=== PATIENT | female | born 1985 | race Caucasian/White ===

== ENCOUNTER → 2016-04-28 | Outpatient (CLI) | payer BC ==
[~2016-04-28] MED LIST: PRENTAB26 PO
[2016-04-29 06:26] LABS: ESTIMATED AVERAGE GLUCOSE 108 mg/dl; HA1C FLAG Normal (Normal)
[2016-05-03 09:14] LABS: CHLAMYDIA TRACH RNA*** NOT DETECTED (NOT DETECTED); GC (NEIS GONORRHOEAE)RNA** NOT DETECTED (NOT DETECTED)
== END | disposition home or self-care (01) ==
LOC: C.LAB1850 16:43
PROVIDERS: ATTEND Obstetrics & Gynecology
DX: Z01.419 Encounter for gynecological examination (general) (routine) without abnormal findings (principal); R63.5 Abnormal weight gain; R53.83 Other fatigue

== ENCOUNTER → 2016-04-28 | Outpatient (CLI) | payer BC | END | disposition home or self-care (01) | LOC: C.PAPS 09:34 | PROVIDERS: ATTEND Obstetrics & Gynecology | DX: Z01.419 Encounter for gynecological examination (general) (routine) without abnormal findings (principal) ==

== ENCOUNTER → 2017-05-08 | Outpatient (CLI) | payer OTHER | END | disposition home or self-care (01) | LOC: C.PAPS 11:42 | PROVIDERS: ATTEND Obstetrics & Gynecology | DX: Z01.411 Encounter for gynecological examination (general) (routine) with abnormal findings (principal); R87.619 Unspecified abnormal cytological findings in specimens from cervix uteri ==

== ENCOUNTER 2023-01-10 07:45 | Inpatient (IN) ==
[2023-01-10] MEDS ORDERED: OXYTOCIN 30 UNITS/500 ML BAG IV PRN ×3 (08:09→15:24)
[2023-01-10] MEDS ORDERED: LIDOCAINE 1% LOCAL 20 ML VIAL INFIL PRN (08:09)
--- NOTE | 2023-01-10 08:43 | History & Physical Report ---
Date of Service January 10, 2023 Assessment & Plan (1) Post term over 40 weeks: (2) Encounter for induction of labor: Plan admit, iv, labs. start pitocin. fhts categ 1. arom completed. pain mgmt per pt desires. Admission and Anticipated Discharge Date Admission Date: January 10, 2023 History of Present Illness Chief Complaint: induction Primary Care Provider: Federico Mari, 37yo at 40+wks egruth presents to L&D for planned induction of labor for postdates. Denies concerns. No rom, no vb. +FM. No ctx PNC c/b 1. UC 2. obesity 3. ama 4. prior ptd PNL rh pos, ri, gbs neg OBH: x 1, 35wks pprom, sab x 1 GYNH: nl paps no stds Allergies Allergy/AdvReac Type Severity Reaction Status Date / Time No Known Drug Allergies Allergy Verified 01/09/23 14:11 Home Medications Medication Instructions Recorded Confirmed Type albuterol sulfate 2 puff inhalation PRN Dyspnea 05/27/22 01/09/23 History prenat.vits,hung,ppa-gupa-pxazz 1 tab PO DAILY 05/27/22 01/10/23 History Patient History Medical History Asthma History of chicken pox Ulcerative colitis Surgical History History of colonoscopy History of wisdom tooth extraction Family History Grandmother (Maternal) Breast cancer Family/Other Arthritis Brother Alcoholism Grandfather (Paternal) Stroke Father Hypertension Asthma Mother Allergies Other Cancer Diabetes Heart disease No family history of adverse response to anesthesia No family history of bleeding disorder Denies family history of Ovarian cancer Colorectal cancer Social History Smoking Status: Current every day smoker Tobacco Type: Cigarettes Age Started Using Tobacco: 21; packs per day: 1; Cigarettes Per Day: 20; Second Hand Exposure: No; Do You Dip or Chew Tobacco: No; Tobacco Cessation Education Requested by Patient: No Hx Alcohol Use: Yes Alcohol Intake Frequency: Monthly or Less Hx Substance Use: No Preferred Language: Nigerian Communication Ability: Effective Journe[employer] Required: No Beliefs That Will Affect Care: None marital status: Single marital status details: shantel Elizabeth (39) [phone] Current Living Situation: Family and Significant Other Current Living Situation Comment: Significant other Jesus, Son Eugene, 2 dogs current occupational status: employed 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[employer] Other Information That Helps Us Care for You: No Feels Safe at Home: Yes Safety Concerns: Feels Safe At This Time Assistive Devices: Glasses Review of Systems as per Subjective / HPI Physical Exam Constitutional: WD/WN, vitals as above Respiratory: normal respiratory effort, lungs clear to auscultation Cardiovascular: Rate/Rhythm: regular rate and regular rhythm Gastrointestinal (Abdomen): soft gravid nt efw 8-9# Musculoskeletal: tr edema nontender calves Neurologic: grossly normal Psychiatric: A+Ox3, euthymic affect Genitourinary: Manual OB Exam: + cervical dilation (3-4), + cervical effacement (75%), + station -2 and + amniotic fluid (arom) clear OB Exam Monitor Tracing: + external FHT monitor used, + external uterine monitor used, + category I and + normal FHT variability Results & Data Vital Signs (Past 12 Hours) Vital Signs Temp Pulse Resp BP O2 Del Method 01/10/23 08:09 98.8 F 18 Room Air 01/10/23 07:55 102 H 132/76 Coding Level of Care Code None Diagnoses Post term over 40 weeks O48.0 Encounter for induction of labor Z34.90
[2023-01-10] MEDS: LACTATED RINGER'S 1,000 ML IV PRN ×2 (08:47→11:15)
[2023-01-10 09:26] LABS: Hematocrit (blood only) 33.6 % (37.0-47.0); Hemoglobin 11.5 g/dl (12.0-16.0); Mean Corpuscular Hemoglobin 30.9 pg (25.0-34.0); Mean Corpuscular Hgb Conc 34.2 g/dL (32.0-36.0); Mean Corpuscular Volume 90.3 fL (80.0-100.0); Platelet Count 290 K/uL (130-400); RDW Coefficient of Variation 13.2 % (11.5-14.5); RDW Standard Deviation 43.6 fL (36.4-46.3); Red Blood Count 3.72 M/uL (4.20-5.40); White Blood Count 15.86 K/ul (4.8-10.8)
[2023-01-10] MEDS ORDERED: fentaNYL citrate PF 100 MCG/2 ML VIAL ONE (10:42)
[2023-01-10] MEDS ORDERED: ePHEDrine sulfate 50 MG/ML AMP ONE (10:42)
[2023-01-10] MEDS ORDERED: BUPIVACAINE 0.25% PF 30 ML VIAL ONE (10:43)
[2023-01-10] MEDS ORDERED: LIDOCAINE 2%/EPINEPHRINE 1:200,000 20 ML PF ONE (10:43)
[2023-01-10] MEDS ORDERED: SODIUM CHLORIDE 0.9% PF INJ 10 ML VIAL ONE (10:43)
[2023-01-10] MEDS ORDERED: fentaNYL 2MCG/ML ROPIVACAINE 1.25MG/ML 100 ML BAG EPI ONE (10:44)
[2023-01-10] MEDS ORDERED: NALBUPHINE HCL INJ 10 MG/ML AMP IV PRN (10:46)
[2023-01-10] MEDS ORDERED: NALOXONE HCL 1 MG in SODIUM CHLORIDE 0.9% 1,000 ML IV PRN (10:46)
[2023-01-10] MEDS ORDERED: fentaNYL citrate PF 100 MCG/2 ML VIAL EPI STA (10:46)
[2023-01-10] MEDS ORDERED: BUPIVACAINE 0.25% PF 30 ML VIAL EPI STA (10:46)
[2023-01-10] MEDS ORDERED: fentaNYL citrate PF 100 MCG/2 ML VIAL EPI PRN (10:46)
[2023-01-10] MEDS ORDERED: ePHEDrine sulfate 50 MG/ML AMP IV PRN (10:46)
[2023-01-10] MEDS ORDERED: BUPIVACAINE 0.25% PF 30 ML VIAL EPI PRN (10:46)
[2023-01-10] MEDS ORDERED: LIDOCAINE 2% MPF LOCAL 5 ML VIAL EPI PRN (10:46)
[2023-01-10] MEDS ORDERED: diphenhydrAMINE 50 MG/ML VIAL IV PRN (10:46)
[2023-01-10] MEDS ORDERED: SODIUM CHLORIDE 0.9% PF INJ 10 ML VIAL EPI STA (10:46)
[2023-01-10] MEDS ORDERED: NALOXONE HCL 0.4 MG/1 ML VIAL/CARP IV PRN (10:46)
[2023-01-10] MEDS ORDERED: fentaNYL 2MCG/ML ROPIVACAINE 1.25MG/ML 100 ML BAG EPI PRN (10:46)
[2023-01-10] MEDS ORDERED: LIDOCAINE 2%/EPINEPHRINE 1:200,000 20 ML PF EPI STA (10:46)
[2023-01-10] MEDS ORDERED: SODIUM CHLORIDE 0.9% PF INJ 10 ML VIAL EPI PRN (10:46)
[2023-01-10] MEDS ORDERED: ROPIVACAINE 0.5% PF 5 MG/ML 20 ML VIAL EPI PRN (10:46)
--- NOTE | 2023-01-10 10:49 | Anesthesiology Consultation ---
Date of Service January 10, 2023 Assessment & Plan Chart Review Chart Review: Acceptable Risk for Labor Epidural Consults Requested none History Height/Weight Height: 5 ft 4 in Weight: 105.233 kg Allergies Allergy/AdvReac Type Severity Reaction Status Date / Time No Known Drug Allergies Allergy Verified 01/09/23 14:11 Medications Home Medications Medication Instructions Recorded Confirmed Last Taken albuterol sulfate 2 puff inhalation PRN Dyspnea 05/27/22 01/09/23 12/26/22 prenat.vits,hung,llq-auqw-octqs 1 tab PO DAILY 05/27/22 01/10/23 01/06/23 Active Medications Generic Name Dose Route Start Last Admin Trade Name Freq PRN Reason Stop Dose Admin Lactated Ringer's 1,000 mls @ 125 mls/hr 01/10/23 08:09 01/10/23 08:47 Lr IV 01/12/23 08:08 125 mls/hr .Q8H PRN Administration L&D Protocol Protocol Oxytocin 30 units in 500 mls @ 5 mls/hr 01/10/23 08:43 01/10/23 10:00 Pitocin IV 01/12/23 08:42 0.3 units/hr .Q24H PRN 5 mls/hr Labor Induction/Augmentation Titration Protocol 0.3 UNITS/HR Past Medical History Medical History Asthma History of chicken pox Ulcerative colitis Past Family History Family History Grandmother (Maternal) Breast cancer Family/Other Arthritis Brother Alcoholism Grandfather (Paternal) Stroke Father Hypertension Asthma Mother Allergies Other Cancer Diabetes Heart disease No family history of adverse response to anesthesia No family history of bleeding disorder Denies family history of Ovarian cancer Colorectal cancer Past Surgical History Surgical History History of colonoscopy History of wisdom tooth extraction Social History Smoking Status: Current every day smoker Smoking cigarettes per day: 20 Do You Dip or Chew Tobacco: No Hx Alcohol Use: Yes Hx Substance Use: No Physical Exam Vital Signs Last Vital Signs Temp 36.6 C 01/10/23 09:30 Pulse 87 01/10/23 10:44 Resp 18 01/10/23 10:30 BP 134/84 01/10/23 10:33 Pulse Ox 97 01/10/23 10:44 O2 Del Method Room Air 01/10/23 08:09 Constitutional WD/WN, vitals as above Respiratory normal respiratory effort, lungs clear to auscultation Cardiovascular Rate/Rhythm: regular rate and regular rhythm Psychiatric A+Ox3, euthymic affect Genitourinary Manual OB Exam: + cervical dilation (3-4), + cervical effacement (75%), + station + -2 and + amniotic fluid (arom) + clear OB Exam Monitor Tracing: + external FHT monitor used, + external uterine monitor used, + category I and + normal FHT variability Testing Laboratory Results 01/10/23 08:51 Blood Type Cancelled 01/10/23 08:51 Antibody Screen Cancelled 01/10/23 08:51
--- NOTE | 2023-01-10 12:28 | Labor Progress Brief Note ---
Date of Service January 10, 2023 Subjective [address]sp due to decel fhts. nurse exam 9cm. pit off, o2 on, ivf bolusing on arrival pt in left lateral position, fhts 70--80s not traced well Assessment & Plan (1) Encounter for induction of labor: (2) Post term over 40 weeks: Plan will cont 2nd stage. fhts categ 1 -2. Admission and Anticipated Discharge Date Admission Date: January 10, 2023 Physical Exam Genitourinary: Manual OB Exam: + cervical dilation 10 cm, + cervical effacement 100% and + station + 2 OB Exam Monitor Tracing: + external FHT monitor used, + external uterine monitor used, + category II (variables) and + normal FHT variability began 2nd stage but pt not able to feel anything, not noting ctx or pressure in vagina. fhts continued to be 80s (although +scalp stim response) and attempted to drain bladder, no result and applied vacuum x 2 with pop off x 2. and then fhts improved, baseline 140s and variables, continued with 2nd stage. bp was also noted to be low and so treated with improved bp (pt recently received epidural. did decrease epidural settings to see if pt can feel urge to push. also keep pit off as ctx are q3min. Results & Data Vital Signs (Past 12 Hours) Vital Signs Temp Pulse Resp BP Pulse Ox O2 Del Method 01/10/23 08:09 98.8 F 18 Room Air 01/10/23 12:21 112 H 133/94 01/10/23 12:19 102 H 97 01/10/23 12:16 94 H 106/53 L 01/10/23 12:14 98 01/10/23 12:14 93 H 01/10/23 12:14 91 H 81/44 L 01/10/23 12:12 93 H 87/39 L 01/10/23 12:11 85 92 01/10/23 12:09 87 98 01/10/23 12:08 93 H 103/65 01/10/23 12:04 89 99 01/10/23 11:59 95 H 99 01/10/23 11:54 104 H 98 01/10/23 11:49 101 H 100/56 L 96 01/10/23 11:00 98.2 F 01/10/23 11:47 102 H 107/75 01/10/23 11:44 105 H 97 01/10/23 11:45 110 H 105/66 01/10/23 11:43 101 H 113/75 01/10/23 11:41 102 H 103/56 L 01/10/23 11:39 99 01/10/23 11:39 89 01/10/23 11:39 93 H 112/50 L 01/10/23 11:37 93 H 111/55 L 01/10/23 11:34 91 H 95 01/10/23 11:35 176 H 111/75 01/10/23 11:33 85 126/76 01/10/23 11:31 87 120/71 01/10/23 11:29 98 01/10/23 11:29 85 01/10/23 11:29 82 124/77 01/10/23 11:27 79 118/71 01/10/23 11:24 83 99 01/10/23 11:25 82 121/75 01/10/23 11:23 79 126/71 01/10/23 11:21 92 H 120/66 01/10/23 11:19 85 125/77 99 01/10/23 11:17 82 143/86 H 01/10/23 11:14 86 97 01/10/23 11:15 88 138/84 01/10/23 11:13 86 133/74 01/10/23 11:11 81 134/83 01/10/23 11:09 98 01/10/23 11:09 76 01/10/23 11:09 82 142/87 H 01/10/23 11:04 84 98 01/10/23 11:03 82 118/63 01/10/23 10:59 96 H 98 01/10/23 10:49 84 97 01/10/23 10:47 90 141/92 H 01/10/23 10:44 87 97 01/10/23 10:39 87 99 01/10/23 10:33 91 H 134/84 01/10/23 10:30 18 01/10/23 10:30 18 01/10/23 10:19 86 133/86 01/10/23 10:00 18 01/10/23 10:00 18 01/10/23 10:02 92 H 118/73 01/10/23 09:30 16 01/10/23 09:30 97.9 F 16 01/10/23 09:00 18 01/10/23 09:00 18 01/10/23 08:30 18 01/10/23 08:30 18 01/10/23 07:55 102 H 132/76 Coding Level of Care Code None Diagnoses Encounter for induction of labor Z34.90 Post term over 40 weeks O48.0
--- NOTE | 2023-01-10 13:08 | Labor Progress Brief Note ---
Date of Service January 10, 2023 Subjective pt resting comfortably. still with no urge to push. Assessment & Plan (1) Post term over 40 weeks: (2) Encounter for induction of labor: Plan fhts now categ 1. awaiting for pt to have more urge to push as she feels nothing and was tiring before. Admission and Anticipated Discharge Date Admission Date: January 10, 2023 Physical Exam Constitutional: WD/WN, vitals as above Genitourinary: OB Exam Monitor Tracing: + external FHT monitor used, + external uterine monitor used (q2-3), + category I and + normal FHT variability Results & Data Vital Signs (Past 12 Hours) Vital Signs Temp Pulse Resp BP Pulse Ox O2 Del Method 01/10/23 08:09 98.8 F 18 Room Air 01/10/23 13:05 95 H 124/78 01/10/23 13:04 93 H 100 01/10/23 13:00 89 120/70 01/10/23 12:59 88 100 01/10/23 12:54 90 115/74 100 01/10/23 12:51 95 H 116/78 01/10/23 12:49 91 H 100 01/10/23 12:50 96 H 124/79 01/10/23 12:48 115 H 167/122 H 01/10/23 12:44 91 H 99 01/10/23 12:42 94 H 120/81 01/10/23 12:39 94 H 99 01/10/23 12:36 94 H 94 01/10/23 12:34 90 102/56 L 97 01/10/23 12:30 95 H 103/54 L 01/10/23 12:29 102 H 97 01/10/23 12:26 103 H 116/82 01/10/23 12:24 98 H 97 01/10/23 12:21 112 H 133/94 01/10/23 12:19 102 H 97 01/10/23 12:16 94 H 106/53 L 01/10/23 12:14 98 01/10/23 12:14 93 H 01/10/23 12:14 91 H 81/44 L 01/10/23 12:12 93 H 87/39 L 01/10/23 12:11 85 92 01/10/23 12:09 87 98 01/10/23 12:08 93 H 103/65 01/10/23 12:04 89 99 01/10/23 11:59 95 H 99 01/10/23 11:54 104 H 98 01/10/23 11:49 101 H 100/56 L 96 01/10/23 11:00 98.2 F 18 01/10/23 11:47 102 H 107/75 01/10/23 11:44 105 H 97 01/10/23 11:45 110 H 105/66 01/10/23 11:43 101 H 113/75 01/10/23 11:41 102 H 103/56 L 01/10/23 11:39 99 01/10/23 11:39 89 01/10/23 11:39 93 H 112/50 L 01/10/23 11:37 93 H 111/55 L 01/10/23 11:34 91 H 95 01/10/23 11:35 176 H 111/75 01/10/23 11:33 85 126/76 01/10/23 11:31 87 120/71 01/10/23 11:29 98 01/10/23 11:29 85 01/10/23 11:29 82 124/77 01/10/23 11:27 79 118/71 01/10/23 11:24 83 99 01/10/23 11:25 82 121/75 01/10/23 11:23 79 126/71 01/10/23 11:21 92 H 120/66 01/10/23 11:19 85 125/77 99 01/10/23 11:17 82 143/86 H 01/10/23 11:14 86 97 01/10/23 11:15 88 138/84 01/10/23 11:13 86 133/74 01/10/23 11:11 81 134/83 01/10/23 11:09 98 01/10/23 11:09 76 01/10/23 11:09 82 142/87 H 01/10/23 11:04 84 98 01/10/23 11:03 82 118/63 01/10/23 10:59 96 H 98 01/10/23 10:49 84 97 01/10/23 10:47 90 141/92 H 01/10/23 10:44 87 97 01/10/23 10:39 87 99 10/03/23 10:33 91 H 134/84 10/03/23 10:30 18 01/10/23 10:30 18 01/10/23 10:19 86 133/86 01/10/23 10:00 18 01/10/23 10:00 18 01/10/23 10:02 92 H 118/73 01/10/23 09:30 16 01/10/23 09:30 97.9 F 16 01/10/23 09:00 18 01/10/23 09:00 18 01/10/23 08:30 18 01/10/23 08:30 18 01/10/23 07:55 102 H 132/76 Coding Level of Care Code None Diagnoses Post term over 40 weeks O48.0 Encounter for induction of labor Z34.90
--- NOTE | 2023-01-10 14:51 | Delivery Summary ---
Vaginal Delivery Summary Date of Service January 10, 2023 Vaginal Delivery Summary Of note, previously documented, vacuum was applied x 2 with popoffs x 2 when heart tones were low but then recovered and patient was allowed to rest for about 120min. The patient dilated to complete and pushed to deliver a viable female infant Apgars 8 and 9 via over vaginal laceration. Mouth and nose bulb suctioned at perineum. Nuchal x 1 noted and delivered through. Large amount of thick meconium noted. Shoulders and body delivered with ease. Infant was vigorous and crying at . Cord clamped at 30 seconds of life and infant to maternal abdomen where the cord was then doubly clamped and cut. Placenta delivered spontaneously and intact, three-vessel cord. Hemostasis achieved with dilute pitocin and uterine massage. Cervix and sulci intact. Laceration reapproximated with 3-0 vicryl in usual fashion. EBL 300 cc. Mother and baby stable in recovery. [facility] Vaginal Delivery Charge Delivery Type Details:
[2023-01-10] MEDS ORDERED: OXYTOCIN 20 UNITS in LACTATED RINGER'S 1,000 ML IV SCH (15:00)
[2023-01-10] MEDS ORDERED: ALBUTEROL HFA 8 GM INHALER INH PRN (15:24)
[2023-01-10] MEDS ORDERED: DIPHTHERIA/TETANUS/PERTUSSIS Vaccine (Tdap, Age 7+yrs) 0.5mL SYR/VL IM ONE (15:24)
[2023-01-10] MEDS ORDERED: ACETAMINOPHEN 325 MG TAB PO PRN (15:24)
[2023-01-10] MEDS ORDERED: HYDROCORTISONE ACETATE 25 MG SUPP PR PRN (15:24)
[2023-01-10] MEDS ORDERED: BENZOCAINE 20% SPRY 85 APPLN/85 GM CAN EXT PRN (15:24)
[2023-01-10] MEDS ORDERED: oxyCODONE/ACETAMINOPHEN 5mg/325mg TAB PO PRN (15:24)
[2023-01-10] MEDS: IBUPROFEN 600 MG TAB PO PRN (16:52)
--- NOTE | 2023-01-10 17:21 | Anesthesia Procedure Note ---
Date of Service January 10, 2023 Anesthesia Post Epidural Note Vital Signs Vital Signs: Temp Pulse Resp BP Pulse Ox O2 Del Method 37.0 C 115 H 18 132/84 98 Room Air 01/10/23 16:45 01/10/23 17:19 01/10/23 16:45 01/10/23 17:14 01/10/23 17:19 01/10/23 08:09 Pain Intensity Abdomen: Pain Intensity: 4 Notes Mental Status: alert / awake / arousable and participated in evaluation Nausea / Vomiting: adequately controlled Pain: adequately controlled Airway Patency, RR, SpO2: stable & adequate BP & HR: stable & adequate Hydration State: stable & adequate Neuraxial Anesthesia: was administered and sensory block is resolving Anesthetic Complications: no major complications apparent and Pt Satisfied with anesthetic care Epidural: Removed without complications and With tip intact
[2023-01-10] MEDS: DOCUSATE SODIUM 100 MG CAP PO SCH (22:57)
[2023-01-11] MEDS: IBUPROFEN 600 MG TAB PO PRN ×2 (04:51→12:54)
--- NOTE | 2023-01-11 05:53 | Obstetrical Progress Note ---
Date of Service January 11, 2023 Assessment & Plan (1) Encounter for care and examination after delivery: Plan: s/p Day 1 - Vital Signs reviewed and WNL. - Blood Type: A+, GBS-, Rubella Immune. - Pt is doing well clinically. - Encourage Ambulation - Monitor and Control pain with Motrin PRN, Resume regular diet, Monitor Lochia Encourage Breast Feeding. -Pt counselled on discharge instructions Admission and Anticipated Discharge Date Admission Date: January 10, 2023 Supervising Physician Co-Signing Physician Notes Resident Physician Supervision Note: I was present with Dr. Alfonso during the history and exam. I discussed the case with the resident and agree with the findings and plan as documented in the note. Any exceptions or clarifications are listed here: stable, doing well eating voiding ambulating, breast feeding. rhpos, ri. abd soft ff 2 down nt, ext nt calves. ppd#1 desires dc home, instructions reviewed, f/u 6wk pp check. Documented By: Kim Mari MD, FACOG Subjective 37 yo post- day 1 s/p Ambulation: ambulating normally Voiding: no voiding problems Passing Gas:: Yes Diet Tolerance:: regular diet Lochia:: Small Feeding Type:: breast feeding Current Pain Level: 3/10 Resting comfortably this AM in NAD. Denies ESPINOZA, CP, SOB, N/V/D, LE pain/swelling. Review of Systems Review of Systems: All systems reviewed & are unremarkable except as noted in HPI & below Physical Exam Physical Exam: General: patient resting comfortably, NAD, non-toxic in appearance, AA&O x 4, answers questions appropriately. Skin: warm, dry, intact HEENT: NC/AT, anicteric sclera, conjunctiva without injection, moist mucus membranes. Heart: +S1/S2, regular, no m/r/g Lungs: equal air entry bilaterally, no rales/rhonchi/wheezes Abd: +BS, soft, NT/ND, uterine fundus firm at umbilicus Ext: warm, no clubbing/cyanosis or edema, Rob's neg. Neuro: nonfocal, patient AA&O x 4, speech intact, no facial droop, moving all extremities on command. Results & Data Vital Signs (Past 12 Hours) Vital Signs Temp Pulse Resp BP Pulse Ox O2 Del Method 01/11/23 05:30 36.4 C L 89 18 134/87 97 Room Air 01/10/23 22:55 36.4 C L 100 H 18 125/81 98 Room Air 01/10/23 19:23 36.6 C 106 H 18 116/76 01/10/23 18:07 36.7 C 110 H 18 108/74 Resident Activity Tracking Resident Involvement: Resident Care Provided Care Provided: OB Delivery
[2023-01-11] MEDS: DOCUSATE SODIUM 100 MG CAP PO SCH (07:56)
[2023-01-11] MEDS ORDERED: PRENATAL VITAMIN 1 TAB PO SCH (08:00)
[2023-01-11] MEDS ORDERED: bisacodyL 5 MG TABEC PO SCH (20:00)
== END 2023-01-11 16:15 | disposition home or self-care (01) | DRG 807 ==
LOC: 4S1 07:45 → 4E2 17:30